=== PATIENT | female | born 1960 | race Caucasian/White ===

== ENCOUNTER → 2017-01-29 | Outpatient (CLI) | payer OTHER | LOC: BRMIMAGING 11:20 | PROVIDERS: ATTEND Obstetrics & Gynecology Gynecology | DX: Z12.31 Encounter for screening mammogram for malignant neoplasm of breast (principal) | CPT/HCPCS: G0202 ==

== ENCOUNTER → 2018-02-11 | Outpatient (CLI) | payer OTHER | LOC: BRMIMAGING 08:15 | PROVIDERS: ATTEND Obstetrics & Gynecology Gynecology | DX: Z12.31 Encounter for screening mammogram for malignant neoplasm of breast (principal) ==

== ENCOUNTER 2018-02-17 11:31 | Emergency (ER) | payer OTHER ==
[2018-02-17] MEDS ORDERED: NS 1,000 ML IV ONE (11:53)
--- NOTE | 2018-02-17 12:03 | EDPHY ---
General Time Seen by Provider: 02/17/18 11:39 Narrative: CLINICAL IMPRESSION: Episodic lightheadedness, headache ASSESSMENT/PLAN: A 57-year-old female with history of hypertension and hypothyroidism presents to the emergency department for evaluation of 2 hr of symmetric bilateral subjective facial and mouth tingling, a vicelike tightness around her head, episodic lightheadedness and dizziness that occurred while she was at work. Patient is alert, oriented on arrival with stable vital signs, hypertensive at 170. No associated chest pain, shortness of breath, epigastric abdominal pain, nausea or vomiting, jaw or arm pain. EKG read and interpreted by Dr. Mann, no acute ST or T-wave changes, troponin negative. Chest x-ray with no acute cardiopulmonary abnormality. Labs reassuring, no leukocytosis, renal insufficiency, metabolic disturbance, electrolyte imbalance. CT head read by Radiology with no acute abnormality identified. Patient was admittedly feeling anxious, received 0.5 mg of Ativan with significant improvement in her symptoms , was able to ambulate to the restroom with stable gait and admits that she is feeling improved. She did not want anything for her headache which she rates as 2/10. No associated vision loss, vertigo, nystagmus DIFFERENTIAL DX: Differential diagnosis for headache includes but not limited to subarachnoid hemorrhage, migraine headache, migraine varient headache, tension headache and infectious causes such as meningitis, pharyngitis and sinusitis. ED PROCEDURES: See lab and/or imaging results below ED COURSE: 12:00pm EKG and case discussed with Dr. Mann 12:05 p.m.: POC troponin 0.01 12:25 p.m.: CT read by radiologist, negative for acute intracranial abnormality or hemorrhage. Patient quite anxious will provide some Ativan 1:30 P.M.: Patient ambulated to restroom without difficulty. Reports she is feeling better. Still has a mild headache. Remains without focal neurological deficits. Feels comfortable with discharge home and outpatient follow-up. Has an appointment this week with her PCP. CHIEF COMPLAINT: Subjective bilateral facial tingling, head tightness, subjective dizziness HPI: This is a 57-year-old female with a history of hypertension and hypothyroidism who presents to the emergency department by private vehicle for evaluation of subjective bilateral facial tingling, mouth tingling, a vice-like tightness to the head that is"not painful", rated 2/10, associated with subjective dizziness and mild nausea. Symptoms occurred approximately 2 and 0.5 hr ago while she was sitting at work where she works at [employer]. She was wearing eyeglasses and reported that things seemed blurry in both her eyes. She walked herself to the restroom to try some balance tests and states everything seemed normal. She states her symptoms felt similar to a hypertensive episode she sustained this summer. EMS check of blood pressure on scene was 140. Patient is compliant with her medications. She has been seen by [facility], had normal cardiac workup including stress test this summer and has not had any changes to her medications. She has been struggling with some sinus congestion and a sinus infection and recently completed antibiotics. No reported fever or chills. No reported upper extremity numbness, tingling or weakness. No difficulty walking or lower leg weakness. No difficulty finding words or slurring her speech. No associated chest pain, shortness of breath, lower leg swelling, syncope or lightheadedness. She did not take anything over-the- counter prior to arrival. She is not anticoagulated. She denies smoking, drinks socially, denies any illicit drugs. PAST MEDICAL HISTORY: Hypothyroidism, hypertension See nurse/triage notes for additional history if applicable Pertinent Past Surgical History: None reported Family History: Mother with a stroke at age 32 Social History: Nonsmoker, drinks socially, no illicit drugs, works in [employer]. REVIEW OF SYSTEMS: All other systems negative Constitutional: No fever, no chills, appetite change. Eyes: No discharge, positive subjective bilateral vision "fogginess" ENT: No sore throat, positive congestion, denies ear pain. Cardiovascular: No chest pain, no palpitations. Respiratory: No cough, no shortness of breath. Gastrointestinal: No abdominal pain, no vomiting, diarrhea. Genitourinary: No hematuria, dysuria, flank pain, pelvic pain Musculoskeletal: No back pain, joint swelling, joint pain, myalgias. Skin: No rashes, color change. Neurological: Positive headache, dizziness, weakness. PHYSICAL EXAM: General Appearance: Alert, oriented, appropriate, cooperative, NAD, well hydrated, non-toxic appearing, hypertensive, remainder of vital signs stable no hypoxia. Answering all questions appropriately with clear speech HEENT: TMs are clear bilaterally no perforation or FB, no injection, no evidence of serous or mucopurulent otitis. Oropharynx clear is no erythema or exudates, no tonsillar hypertrophy or asymmetry. Dentition without abnormality. No facial asymmetry or reported decrease in sensation to light touch of the face Eyes: PERRLA, no acute vision change, nystagmus, swelling, discharge, pain or photosensitivity. Conjunctiva pink, no pallor or injection Neck: Supple, nontender, no lymphadenopathy, no midline pain, FROM, no meningismus. Respiratory: There are no retractions, lungs are clear to auscultation. Cardiac: Regular rate and rhythm, no murmurs or gallops. Gastrointestinal: Abdomen is soft, nontender, bowel sounds normal, no masses/ hernia, no rigidity, guarding or focal peritoneal findings. Neurological: Alert and oriented x 3, CN 2-12 grossly intact, normal gait no ataxia, DTR's intact, normal sensation and strength. NIH score of 0 with no limb ataxia Skin: Warm, dry, no rashes, no nodules on palpation. Musculoskeletal: Extremities are symmetrical, full range of motion, no tenderness, deformity, swelling, or erythema. Psychiatric: Patient is oriented X 3, there is no agitation. MEDICAL DECISION MAKING: Patient was seen independently. Secondary supervising physician at time of evaluation was Dr. Mann. Diagnosis: Episodic lightheadedness, headache . New, requires workup Summary: See Assessment and Plan for summary of ED visit Clinical lab tests: ordered / reviewed. Independent visualization of images, tracing, or specimens: Yes. Decision to obtain medical records or history from someone other than the patient: No Review / Summarize previous medical records: non available Discussed patient with another provider: Dr. Mann, radiology Patient Progress: Improved. - Diagnostics Imaging Results: Imaging Impressions Chest X-Ray 02/17/18 11:54 Impression: No acute findings in the chest. Head CT 02/17/18 11:54 Impression: No acute intracranial process. Findings and recommendations discussed with Feng Price at 1220 hour, 02/17/2018. - History Smoking Status: Never smoked - Objective Vital Signs: Initial Vital Signs Temperature (C) 36.6 C 02/17/18 11:41 Heart Rate 78 02/17/18 11:41 Respiratory Rate 18 02/17/18 11:41 Blood Pressure 171/81 H 02/17/18 11:41 O2 Sat (%) 96 02/17/18 11:41 O2 Delivery Mode Room Air Allergies/Adverse Reactions: Sulfa (Sulfonamide Antibiotics) Allergy (Verified 02/17/18 11:54) Home Medications: Medication Instructions Recorded ARMOUR THYROID 02/17/18 Aspirin 81mg (*) 02/17/18 Atorvastatin Calcium 02/17/18 Estradiol 02/17/18 Lisinopril 02/17/18 buPROPion 02/17/18 Laboratory Results: Laboratory Results 02/17/18 11:46 02/17/18 11:46 02/17/18 02/17/18 02/17/18 11:52 11:46 11:46 WBC 9.85 10^3/uL H 10^3/uL (3.80-9.50) RBC 5.15 10^6/uL 10^6/uL (4.18-5.33) Hgb 14.6 g/dL g/dL (12.6-16.3) Hct 44.7 % % (38.0-47.0) MCV 86.8 fL fL (81.5-99.8) MCH 28.3 pg pg (27.9-34.1) MCHC 32.7 g/dL g/dL (32.4-36.7) RDW 13.2 % % (11.5-15.2) Plt Count 416 10^3/uL H 10^3/uL (150-400) MPV 10.0 fL fL (8.7-11.7) Neut % (Auto) 66.9 % % (39.3-74.2) Lymph % (Auto) 23.7 % % (15.0-45.0) [place] % (Auto) 6.6 % % (4.5-13.0) Eos % (Auto) 0.7 % % (0.6-7.6) Baso % (Auto) 1.0 % % (0.3-1.7) Nucleat RBC Rel Count 0.0 % % (0.0-0.2) Absolute Neuts (auto) 6.59 10^3/uL H 10^3/uL (1.70-6.50) Absolute Lymphs (auto) 2.33 10^3/uL 10^3/uL (1.00-3.00) Absolute Monos (auto) 0.65 10^3/uL 10^3/uL (0.30-0.80) Absolute Eos (auto) 0.07 10^3/uL 10^3/uL (0.03-0.40) Absolute Basos (auto) 0.10 10^3/uL 10^3/uL (0.02-0.10) Absolute Nucleated RBC 0.00 10^3/uL 10^3/uL (0-0.01) Immature Gran % 1.1 % % (0.0-1.1) Immature Gran # 0.11 10^3/uL H 10^3/uL (0.00-0.10) Sodium 139 mEq/L mEq/L (135-145) Potassium 4.4 mEq/L mEq/L (3.5-5.2) Chloride 106 mEq/L mEq/L (97-110) Carbon Dioxide 24 mEq/l mEq/l (22-31) Anion Gap 9 mEq/L mEq/L (6-14) BUN 16 mg/dL mg/dL (7-23) Creatinine 0.9 mg/dL mg/dL (0.6-1.0) Estimated GFR > 60 Glucose 81 mg/dL mg/dL (70-100) Calcium 9.8 mg/dL mg/dL (8.5-10.4) POC Troponin I 0.01 ng/mL ng/mL (0.00-0.08) Medications Given: Discontinued Medications Sodium Chloride (Ns) 1,000 mls @ 500 mls/hr IV EDNOW ONE PRN Reason: Protocol Stop: 02/17/18 13:52 Last Admin: 02/17/18 12:22 Dose: 1,000 mls Lorazepam (Ativan Injection) 0.5 mg IVP EDNOW ONE Stop: 02/17/18 12:32 Last Admin: 02/17/18 12:33 Dose: 0.5 mg Point of Care Test Results: Chemistry 02/17/18 11:52 POC Troponin I 0.01 ng/mL ng/mL (0.00-0.08) Departure - Departure Disposition: Home, Routine, Self-Care Clinical Impression: Headache around the eyes, Episodic lightheadedness Condition: Good Instructions: Acute Headache (ED), Lightheadedness (ED), Dizziness (ED) Additional Instructions: DISCHARGE INSTRUCTIONS FROM YOUR DOCTOR Thank you for visiting our emergency department today. Please keep in mind that discharge from the emergency department does not mean that there is nothing wrong - it simply means that we have not identified an emergency condition that requires further evaluation or treatment in the hospital. You should always plan to follow up with primary care for re-evaluation of your condition in the next 2-3 days. If you have been referred to a specialist, please call as soon as possible (today or tomorrow) to schedule your follow up appointment at the appropriate time. PLEASE MAKE A FOLLOW-UP APPOINTMENT WITH HER PRIMARY CARE PROVIDER THIS WEEK. LAB, EKG AND CT IN THE ED WERE REASSURING WITH NO ACUTE ABNORMALITIES IDENTIFIED. PLEASE REST AT HOME. DRINK PLENTY OF FLUID AND EAT REGULAR MEALS. RETURN TO THE EMERGENCY DEPARTMENT FOR WORSENING HEADACHE, ALTERED MENTAL STATUS, SEIZURE ACTIVITY, VOMITING, SEVERE DIZZINESS OR VERTIGO, NECK PAIN, UPPER EXTREMITY WEAKNESS OR NUMBNESS, ACUTE VISION LOSS OR VISION CHANGE, OR ANY OTHER CONCERN. People present with illnesses and injuries in different ways, and it is always possible that we have missed something. You may always return for re-evaluation if symptoms worsen or if they are not improving or if you develop new/different symptoms. Again, thank you for choosing our emergency department. We hope that you feel better. Referrals: Franky Cochran MD [Primary Care Provider] - 1-2 days without fail
[2018-02-17 12:04] LABS: PLATELET COUNT 416 10^3/uL (150-400)
[2018-02-17] MEDS ORDERED: LORazepam 2 MG/ML INJ ONE (12:31)
[2018-02-17] MEDS ORDERED: LORazepam 2 MG/ML INJ IVP ONE (12:31)
[2018-02-17 13:45] VITALS: BP 156/81
--- NOTE | 2018-02-17 15:28 | CPEKG ---
Test Reason : OPEN Blood Pressure : / mmHG Vent. Rate : 068 BPM Atrial Rate : 067 BPM P-R Int : 138 ms QRS Dur : 088 ms QT Int : 401 ms P-R-T Axes : 047 -11 038 degrees QTc Int : 427 ms Sinus rhythm Probable left atrial enlargement Anterior infarct, old Confirmed by Kaelyn Mann ([id number]) on 02/17/2018 3:28:16 PM Referred By: Confirmed By:Kaelyn Mann
== END 2018-02-17 14:05 | disposition home or self-care (01) ==
DX: R51 Headache (principal); R42 Dizziness and giddiness; R20.2 Paresthesia of skin; R68.89 Other general symptoms and signs
CPT/HCPCS: 84484-ER; 96374; J2060